=== PATIENT | female | born 2000 | race Caucasian/White ===

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

== ENCOUNTER 2018-09-27 02:59 | Emergency (ER) | payer OTHER ==
[2018-09-27 03:07] VITALS: BP 125/7
== END 2018-09-27 04:00 | disposition left against medical advice (07) ==
LOC: ER 02:59
DX: Z53.21 Procedure and treatment not carried out due to patient leaving prior to being seen by health care provider (principal); R39.198 Other difficulties with micturition